=== PATIENT | male | born 1995 | race Caucasian/White ===

== ENCOUNTER 2020-12-25 10:33 | Emergency (ER) | payer OTHER ==
[2020-12-25 10:41] VITALS: BP 131/79; PULSE 80; TEMP 98.6; BMI 23.5
== END 2020-12-25 11:52 | disposition home or self-care (01) ==
LOC: JERFT 10:33
DX: M53.3 Sacrococcygeal disorders, not elsewhere classified (principal)
CPT/HCPCS: 72220-TC-FY; 99283-25